=== PATIENT | female | born 1955 ===

== ENCOUNTER 2018-04-12 10:03 | Outpatient (CLI) | payer SELFPAY | END 2018-04-12 10:04 | disposition home or self-care (01) | LOC: C.LAB 10:03 | DX: Z13.9 Encounter for screening, unspecified (principal); E11.65 Type 2 diabetes mellitus with hyperglycemia; E78.00 Pure hypercholesterolemia, unspecified ==

== ENCOUNTER 2018-04-17 10:13 | Outpatient (CLI) | payer SELFPAY | END 2018-04-17 10:14 | disposition home or self-care (01) | LOC: C.LAB 10:13 | DX: Z13.9 Encounter for screening, unspecified (principal) ==